=== PATIENT | female | born 1980 | race Caucasian/White ===

== ENCOUNTER → 2017-03-02 | Day surgery (SDC) | payer OTHER ==
[2017-02-23 09:19] VITALS: BMI 46.0
[~2017-03-02] VITALS: Ht 162.6 cm; Wt 122.7 kg
[~2017-03-02] MED LIST: ATOR10TA88 PO; CLR10 PO; ERGO500037 PO; FLUT0.15 NAE; LEVO1TAB35 PO; LIDOCAINE HCL 2% 2 ML VIAL (20MG/ML) ONE; LIRA18IN SC; LISI10TA PO; METFTAB PO; PANT40TA PO; PROPOFOL IV EMULSION 10 MG/ML 20 ML VIAL IV ONE; RANI150T3 PO; SODIUM CHLORIDE 0.9% 500ML 500 ML IV ONE; VITA1TAB4 PO; VNTHFA/IN INH
[2017-03-02 08:33] VITALS: Ht 162.6 cm; Wt 122.7 kg
--- NOTE | 2017-03-02 08:33 | Endo History and Physical ---
History & Physical Date of Service: Mar 02, 2017. Chief Complaint: Referring Physician: History of Present Illness Dysphagia and GERD Past Surgical History Hx Cardiac Surgery: No Hx Internal Defibrillator: No Hx Pacemaker: No Hx Abdominal Surgery: Yes ([facility]) Hx of Implantable Prosthesis: No Hx Post-Op Nausea and Vomiting: Yes (S/P RT BREAST DUCT REMOVAL) Hx Cancer Surgery: No Hx Thoracic Surgery: No Hx Orthopedic: No Hx Urinary Tract Surgery: No Family History Colon CA Social History Smoking Status: Heavy Tobacco Smoker Hx Substance Use: No Hx Alcohol Use: Yes ("SOCIALLY") Allergies Coded Allergies: Penicillins (Verified Allergy, Unknown, HIVES, 03/02/17) Silver (Verified Allergy, Unknown, RASH AND SKIN IRRITATION, 03/02/17) Sulfamethoxazole w/Trimethoprim (Verified Allergy, Unknown, GI UPSET, 04/08) Vancomycin (Verified Allergy, Unknown, RASH, 03/02/17) Erythromycin (Verified Adverse Reaction, Unknown, GI UPSET, 03/02/17) Current Medications Reported Home Medications Medications Dose Route/Sig Max Daily Dose Days Date Category Ventolin Hfa (Albuterol) 200 Puffs/04064 Mcg Aers 2-4 Puffs INH Q6H PRN 02/23/17 Reported Flonase Allergy Relief (Fluticasone Propionate (Nasal)) 50 Mcg/Act Spr 2 Sprays CLEMENTINE BID 02/23/17 Reported Victoza (Liraglutide) 18 Mg/3 Ml Inj 1.2 Mg SC QAM 02/23/17 Reported Vitamin E 400 Unit Tab 1 Tab PO QAM 02/23/17 Reported Zantac (Ranitidine HCl) 150 Mg Tab 2 Tabs PO HS 02/23/17 Reported Claritin (Loratadine) 10 Mg Tab 10 Mg PO QAM 02/23/17 Reported Vitamin D 31571 Unit (Ergocalciferol) 50,000 Unit Cap 50,000 Unit PO 2XWK 02/23/17 Reported Protonix (Pantoprazole Sodium) 40 Mg Tab 40 Mg PO QAM 02/23/17 Reported Lipitor (Atorvastatin Calcium) 10 Mg Tab 10 Mg PO QPM 02/23/17 Reported Prinivil (Lisinopril) 10 Mg Tab 10 Mg PO QAM 02/23/17 Reported Glucophage Ext Rel (Metformin HCl) 500 Mg Tab 2 Tabs PO BID 10/19/14 Reported Vital Signs Weight (Kilograms): 122.73 Height (Feet): 5 Height (Inches): 4 Physical Exam General Appearance: no apparent distress Respiratory/Chest: Auscultation: breath sounds normal Cardiovascular: Heart Auscultation: RRR Abdomen: Inspection & Palpation: soft Liver: non-tender Assessment and Plan stable for EGD
[2017-03-02 08:41] VITALS: TEMP 37.1
--- NOTE | 2017-03-02 09:12 | Discharge Instructions ---
Endoscopy Patient Instructions Date / Procedure(s) Performed Mar 02, 2017. EGD Allergy Information Coded Allergies: Penicillins (Verified Allergy, Unknown, HIVES, 03/02/17) Silver (Verified Allergy, Unknown, RASH AND SKIN IRRITATION, 03/02/17) Sulfamethoxazole w/Trimethoprim (Verified Allergy, Unknown, GI UPSET, 04/08) Vancomycin (Verified Allergy, Unknown, RASH, 03/02/17) Erythromycin (Verified Adverse Reaction, Unknown, GI UPSET, 03/02/17) Discharge Date / Findings Mar 02, 2017. normal EGD Medication Instructions Stopped Medication(s): GLUCOPHAGE Provider Instructions Activity Restrictions - No exercising or heavy lifting for 24 hours. - Do not drink alcohol the day of the procedure. - Do not drive a car or operate machinery until the day after the procedure. - Do not make any important decisions or sign important papers in 24 hours after the procedure. Following Day: - Return to full activity which may include returning to work/school. Diet Start your diet with liquids and light foods (jello, soup, juice, toast). Then eat your usual diet if not nauseated. Treatment For Common After Affects For mild abdominal pain, bloating, or excessive gas: - Rest - Eat lightly - Lie on right side Follow-Up Information Follow-up with DR LECHUGA as scheduled Anesthesia Information What You Should Know You have had a procedure that required some medicine to reduce anxiety and discomfort. This treatment is called moderate sedation. After receiving the treatment, you may be sleepy, but you will be able to breathe on your own. The effects of the treatment may last for several hours. Follow these instructions along with Activity/Diet recommendations noted above: * Do NOT do anything where dizziness or clumsiness would be dangerous. * Rest quietly at home today, then you can be up and about tomorrow. * Have a responsible person stay with you the rest of today. * You may have had an I.V. today. If so, you may take the dressing off later today. Recommendations Call your doctor if: * Trouble breathing * Continuous vomiting for more than 24 hours * Temperature above 101 degrees * Severe abdominal pain or bloating * Pain not relieved by pain medicine ordered * There is increased drainage or redness from any incision * A large amount of rectal bleeding greater than 2-3 tablespoons. (If you had a polyp/s removed or have hemorrhoids, a small amount of blood - from the rectum is to be expected.) * You have any unanswered questions or concerns. IN THE EVENT OF A SERIOUS EMERGENCY, GO TO THE NEAREST EMERGENCY ROOM Your discharge instructions were prepared by provider Nader Hernandez. Patient Instructions Signature Page Garima Padilla Patient (or Guardian) Signature/Date: I have read and understand the instructions given to me by my caregivers. Caregiver/RN/Doctor Signature/Date: The above-named patient and/or guardian has received patient instructions on this date. + Original Patient Signature Page (only) stays with chart. Please make copy for patient.
--- NOTE | 2017-03-02 09:23 | GI REPORT ---
Procedure Date: 03/02/2017 8:49 AM Procedure: Upper GI endoscopy Indications: Indigestion, Heartburn, Regurgitation Medicines: See the Anesthesia note for documentation of the administered medications Complications: No immediate complications. Estimated Blood Loss: Estimated blood loss: none. Procedure: Pre-Anesthesia Assessment: - Prior to the procedure, a History and Physical was performed, and patient medications, allergies and sensitivities were reviewed. The patient's tolerance of previous anesthesia was reviewed. - The risks and benefits of the procedure and the sedation options and risks were discussed with the patient. All questions were answered and informed consent was obtained. - Patient identification and proposed procedure were verified prior to the procedure by the physician and the nurse. The procedure was verified in the pre-procedure area. - Pre-procedure physical examination revealed no contraindications to sedation. - After reviewing the risks and benefits, the patient was deemed in satisfactory condition to undergo the procedure. After obtaining informed consent, the endoscope was passed under direct vision. Throughout the procedure, the patient's blood pressure, pulse, and oxygen saturations were monitored continuously. The scope was introduced through the mouth, and advanced to the third part of duodenum. The upper GI endoscopy was accomplished without difficulty. The patient tolerated the procedure well. Findings: The esophagus was normal. The stomach was normal. The examined duodenum was normal. The cardia and gastric fundus were normal on retroflexion. Impression: - Normal esophagus. - Normal stomach. - Normal examined duodenum. - No specimens collected. Recommendation: - Discharge patient to home. Nader Hernandez M.D. Nader Hernandez MD 03/02/2017 9:22:57 AM This report has been signed electronically. Note Initiated On: 03/02/2017 8:49 AM I attest to the content of the Intraoperative Record and orders documented therein, exceptions below
[2017-03-02 09:43] VITALS: BP 121/84; PULSE 96; O2SAT 98
--- NOTE | 2017-03-02 10:21 | Anesthesiology Progress Note ---
Anesthesia Post Op Note Date & Time Mar 02, 2017 at 10:21 Vital Signs Pain Intensity: 0 Vital Signs Past 12 Hours Date Time Temp Pulse Resp B/P (MAP) Pulse Ox O2 Delivery O2 Flow Rate FiO2 03/02/17 09:43 96 18 121/84 (96) 98 Room Air 03/02/17 09:28 89 18 113/81 (92) 98 Room Air 03/02/17 09:13 102 22 99/64 (76) 96 Room Air 03/02/17 08:41 37.1 116 16 144/84 (104) 98 Room Air Notes Mental Status: alert / awake / arousable, participated in evaluation Pt Amnestic to Procedure: Yes Nausea / Vomiting: adequately controlled Pain: adequately controlled Airway Patency, RR, SpO2: stable & adequate BP & HR: stable & adequate Hydration State: stable & adequate Anesthetic Complications: no major complications apparent
== END | disposition home or self-care (01) ==
LOC: C.GI 08:16
PROVIDERS: ATTEND Internal Medicine Gastroenterology
DX: K30 Functional dyspepsia (principal); R12 Heartburn; R11.10 Vomiting, unspecified; G47.33 Obstructive sleep apnea (adult) (pediatric); J45.909 Unspecified asthma, uncomplicated; E11.9 Type 2 diabetes mellitus without complications; Z90.49 Acquired absence of other specified parts of digestive tract; Z98.890 Other specified postprocedural states; E66.01 Morbid (severe) obesity due to excess calories; Z68.42 Body mass index [BMI] 45.0-49.9, adult; Z88.1 Allergy status to other antibiotic agents; Z88.0 Allergy status to penicillin